=== PATIENT | male | born 1985 | race Hispanic/Latino ===

== ENCOUNTER 2018-01-23 18:27 | Emergency (ER) | payer OTHER ==
[2018-01-23 18:35] VITALS: BP 130/90; PULSE 75; RESP 18; TEMP 98; O2SAT 100
[2018-01-23] MEDS ORDERED: Bupivacaine HCl 0.25% PF (10 ml) Inj IJ ONE (18:51)
--- NOTE | 2018-01-23 19:25 | ED PDOC ---
Lower Extremity Pain/Injury Time Seen by Provider: 01/23/18 18:36 Chief Complaint (Nursing): Lower Extremity Problem/Injury Chief Complaint (Provider): Foot Injury History Per: Patient History/Exam Limitations: no limitations Onset/Duration Of Symptoms: Hrs Current Symptoms Are (Timing): Still Present Additional Complaint(s): 32 year old male presents to ED for an evaluation of his right foot. Reports he struck his right 5th toe onto a doorstop prior to arrival. Denies numbness or tingling. PMD: No Family Provider Past Medical History Reviewed: Historical Data, Nursing Documentation, Vital Signs Vital Signs: Last Vital Signs Temp 98 F 01/23/18 18:31 Pulse 75 01/23/18 18:31 Resp 18 01/23/18 18:31 BP 130/90 01/23/18 18:31 Pulse Ox 100 01/23/18 18:31 - Medical History PMH: No Chronic Diseases - Family History Family History: States: Unknown Family Hx - Social History Current smoker - smoking cessation education provided: No Alcohol: Occasional Drugs: Denies - Allergies Allergies/Adverse Reactions: Allergies Allergy/AdvReac Type Severity Reaction Status Date / Time No Known Allergies Allergy Verified 01/23/18 18:31 Review of Systems ROS Statement: Except As Marked, All Systems Reviewed And Found Negative Musculoskeletal: Positive for: Foot Pain (right 5th toe ). Negative for: Other (numbness or tingling) Psych: Negative for: Suicidal ideation (homicidal ideation) Physical Exam - Reviewed Nursing Documentation Reviewed: Yes Vital Signs Reviewed: Yes - Physical Exam Appears: Positive for: Non-toxic, No Acute Distress Head Exam: Positive for: ATRAUMATIC, NORMAL INSPECTION, NORMOCEPHALIC Skin: Positive for: Normal Color, Warm, Dry Eye Exam: Positive for: Normal appearance Pulses-Dorsalis Pedis (R): 2+ Extremity: Positive for: Tenderness (moderate), Capillary Refill (less than 2 seconds), Deformity (right 5th toe), Other (distal sensation intact ) Neurologic/Psych: Positive for: Alert, Oriented (x3) - ECG O2 Sat by Pulse Oximetry: 100 (RA) Pulse Ox Interpretation: Normal - Radiology X-Ray: Interpreted by Md X-Ray Interpretation: Other (R 5th toe with dislocation and oblique minimally displaced proximal phalanx fx) Medical Decision Making Medical Decision Making: Time: 1841 Initial Impression: right 5th toe injury Initial Plan: --Marcaine 0.25% PF (10ml) --Foot Right 5th Digit (toe) [RAD] Marcaine instilled into R 5th toe by Pt. evaluated by Donna, podiatry resident, who performed reduction in ED and also frida nuñez pt. Post reduction x-rays reviewed by Donna who arranged f/u with Dr. Alvarez. Scribe Attestation: Documented by Diaz Kenny, acting as a scribe for Denny Whittington PA-C. Provider Scribe Attestation: All medical record entries made by the Scribe were at my direction and personally dictated by me. I have reviewed the chart and agree that the record accurately reflects my personal performance of the history, physical exam, medical decision making, and the department course for this patient. I have also personally directed, reviewed, and agree with the discharge instructions and disposition. Disposition - Clinical Impression Clinical Impression: Fracture dislocation of toe - Patient ED Disposition Is Patient to be Admitted: No - Disposition Referrals: Akshat Cruz DPM [Staff Provider] - Disposition: Routine/Home Disposition Time: 20:15 Condition: STABLE Additional Instructions: USHA JETT, thank you for letting us take care of you today. Your provider was Cristina Pandya MD and you were treated for RT TOE INJURY. The emergency medical care you received today was directed at your acute symptoms. If you were prescribed any medication, please fill it and take as directed. It may take several days for your symptoms to resolve. Return to the Emergency Department if your symptoms worsen, do not improve, or if you have any other problems. Please contact your doctor or call one of the physicians/clinics you have been referred to that are listed on the Patient Visit Information form that is included in your discharge packet. Bring any paperwork you were given at discharge with you along with any medications you are taking to your follow up visit. Our treatment cannot replace ongoing medical care by a primary care provider outside of the emergency department. Thank you for allowing the [facility] team to be part of your care today. If you had an X-Ray or CT scan: A Radiologist will review the ED reading if any change in treatment is needed we will contact you. If you had a blood, urine, or wound culture: It will take several days for the results, if any change in treatment is needed we will contact you. If you had an STI test: It will take 48 hours for the results. Please call after 1 week if you have not heard back. Instructions: Toe Injury (DC) Forms: [email or web address] (Malay), [facility] ED School/Work Excuse Print Language: SERBIAN
--- NOTE | 2018-01-23 19:31 | CP.PCM.CON ---
History of Present Illness - History of Present Illness History of Present Illness: Podiatry Consult Note - Dr. Alvarez 32 year old male patient unremarkable PMHx seen and examined in ED concerning right 5th digit injury. Patient states approximately 1 hour prior to arrival, he struck his 5th digit onto a doorstop. Patient states after injury his 5th digit was displaced so presented to ED for further evaluation. Patient reports 5 /10 pain after the injury; able to bear weight on right foot. Denies prior treatment. Offers no other pedal complaints. PMHx: denies PSH: denies FH: non-contributory SH: occasional ETOH, denies tobacco/illicit drug use All: NKDA Review of Systems - Review of Systems All systems: reviewed and no additional remarkable complaints except (as per HPI ) Past Patient History - Past Social History Smoking Status: Never Smoked - PSYCHIATRIC Hx Substance Use: Yes - SURGICAL HISTORY Hx Surgeries: No Meds Allergies/Adverse Reactions: Allergies Allergy/AdvReac Type Severity Reaction Status Date / Time No Known Allergies Allergy Verified 01/23/18 18:31 Physical Exam - Constitutional Appears: Well, Non-toxic, No Acute Distress - Extremities Exam Additional comments: RLE focused physical exam: VASC: DP and PT pulses palpable 2/4. CFT <3 seconds to all digits x5. Temperature gradient cool to cool. Nonpitting edema noted to 5th digit. Pedal hair growth appreciated. NEURO: Protective sensation grossly intact. DERM: No open lesions noted. No erythema noted. ORTHO: Pain on palpation 5th digit. Laterally dislocated 5th digit. Digital ROM present. - Neurological Exam Neurological exam: Alert, Oriented x3 - Psychiatric Exam Psychiatric exam: Normal Affect, Normal Mood Results - Vital Signs Recent Vital Signs: Last Vital Signs Temp 98 F 01/23/18 18:31 Pulse 75 01/23/18 18:31 Resp 18 01/23/18 18:31 BP 130/90 01/23/18 18:31 Pulse Ox 100 01/23/18 19:25 Assessment & Plan - Assessment and Plan (Free Text) Assessment: 32M with 5th proximal phalanx fracture, displaced Plan: Patient seen and evaluated Discussed with attending, Dr. Alvarez Right foot XR reviewed: Complete fracture at 5th proximal phalangeal head with lateral displacement 0.5% marcaine digital block given Right 5th digit closed reduction performed without incident; 5th and 4th digit frida splinted with coban Surgical shoe dispensed - patient to be WBAT in surgical shoe Recommend RICE therapy Advised patient to keep dressing clean/dry/intact until follow up appointment Advised patient to take OTC extra strength Tylenol PRN pain Patient to follow up with Dr. Alvarez in office within 1 week of discharge Stable for dc per podiatry Thank you for the consult
--- NOTE | 2018-01-24 14:56 | RAD ---
Date of service: 01/23/2018 PROCEDURE: Right foot attention 5th toe HISTORY: post reduction COMPARISON: 01/23/2018 at 6:55 p.m. TECHNIQUE: Three views of the right foot with special attention to the 5th digit FINDINGS: Comminuted minimally displaced fracture of the proximal phalangeal fracture with minimal displacement. Proximal phalanx. Post close reduction. No other fracture identified. The joint spaces and articular surfaces are intact. IMPRESSION: Close reduction
--- NOTE | 2018-01-24 15:52 | RAD ---
Date of service: 01/23/2018 PROCEDURE: Right foot special attention to 5th digit HISTORY: trauma with deformity COMPARISON: Not available TECHNIQUE: Three views right foot with special attention to the 5th digit FINDINGS: There is a fracture of the diaphysis of the 5th proximal phalanx with lateral angulation of the distal fragment and articulating middle/distal phalanges. No other fracture is identified. The joint spaces and articular surfaces appear intact. IMPRESSION: Angulated fracture of the 5th proximal phalangeal diaphysis.
== END 2018-01-23 21:04 | disposition home or self-care (01) ==
LOC: H.ER 18:27
DX: S92.511A Displaced fracture of proximal phalanx of right lesser toe(s), initial encounter for closed fracture (principal); W22.09XA Striking against other stationary object, initial encounter; Y93.9 Activity, unspecified; S93.106A Unspecified dislocation of unspecified toe(s), initial encounter